=== PATIENT | female | born 1975 | race African-American/Black ===

== ENCOUNTER 2021-01-20 14:55 | Emergency (ER) | payer OTHER ==
[~2021-01-20] VITALS: Ht 165.1 cm; Wt 117.9 kg
[2021-01-20] MEDS ORDERED: IBUPROFEN 600600 M1 PO (17:27)
[2021-01-20] MEDS ORDERED: NORCO7.5 PO (17:27)
[2021-01-20 17:53] VITALS: BP 142/73
== END 2021-01-20 17:53 | disposition home or self-care (01) ==
LOC: ER 14:55
DX: S80.01XA Contusion of right knee, initial encounter (principal); S83.421A Sprain of lateral collateral ligament of right knee, initial encounter; W54.1XXA Struck by dog, initial encounter; Y93.89 Activity, other specified; Y92.89 Other specified places as the place of occurrence of the external cause; Y99.8 Other external cause status